=== PATIENT | male | born 1995 | race Caucasian/White ===

== ENCOUNTER 2017-07-26 15:03 | Inpatient (IN) | payer OTHER, MEDICAID ==
[~2017-07-26] VITALS: Ht 185.4 cm; Wt 89.4 kg
[2017-07-26 15:19] LABS: HEMATOCRIT 45.1 % (42.0-52.0); HEMOGLOBIN 16.3 g/dl (14.0-18.0); MEAN CELL VOLUME 88.6 fl (80.0-94.0); MEAN CORPUSCULAR HGB CONC 36.1 g/dl (33.0-37.0); MEAN PLATELET VOLUME 9.9 fl (9.6-12.3); PLATELET COUNT AUTOMATED 269 10*3/uL (130-400); RED BLOOD COUNT 5.09 10*6/uL (4.50-5.90); RED CELL DISTRI WIDTH 11.9 % (0-14.5); WHITE BLOOD COUNT 23.2 10*3/uL (4.8-10.8)
[2017-07-26 15:35] LABS: ALBUMIN 4.5 gm/dl (3.1-4.5); ALKALINE PHOSPHATASE 66 U/L (45-117); BUN 11 mg/dl (7-24); CHLORIDE 103 mmol/L (98-107); CREATININE 1.19 mg/dL (0.70-1.30); POTASSIUM 3.7 mmol/L (3.5-5.1); SGOT/AST 24 IU/L (3-35); SGPT/ALT 36 U/L (12-78); SODIUM 140 mmol/L (136-145); TOTAL PROTEIN 7.9 gm/dL (6.4-8.2)
[2017-07-26 15:36] LABS: TOTAL CELLS COUNTED 100 #CELLS
[2017-07-26 15:37] LABS: PLATELET SUFFICIENCY NORMAL (NORMAL)
[2017-07-26] MEDS ORDERED: SOTALOL HCL80 MG PO (15:40)
[2017-07-26 15:41] LABS: ACETAMINOPHEN (TYLENOL) < 2.0 ug/ml (10-30); ETHYL ALCOHOL < 3.0 mg/dl (<3)
[2017-07-26 15:44] LABS: THYROID STIM HORMONE (HS) 0.668 uIU/ml (0.358-4.75)
[2017-07-26 16:23] LABS: CKMB 1.4 ng/ml (0.5-3.6)
[2017-07-26 16:39] VITALS: BP 116/66
[2017-07-26 17:15] LABS: BILIRUBIN NEGATIVE (NEGATIVE); BLOOD 3+ (NEGATIVE); CLARITY SL CLOUDY (CLEAR); COLOR YELLOW (YELLOW); GLUCOSE NEGATIVE (NEGATIVE); KETONE 2+ (NEGATIVE); LEUKO ESTERASE NEGATIVE (NEGATIVE); NITRITE NEGATIVE (NEGATIVE); PH 5.5 (5.0-9.0); SPECIFIC GRAVITY 1.025 (1.005-1.030); UROBILINOGEN 0.2 E.U./dl (0.2-1.0)
[2017-07-26 17:25] LABS: URINE AMPHETAMINES < 1000 (1000ng/ml); URINE BARBITURATES < 200 (200ng/ml); URINE BENZODIAZEPINES < 200 (200ng/ml); URINE CANNABINOIDS (THC) < 50 (50ng/ml); URINE COCAINE < 300 (300ng/ml); URINE METHADONE < 300 (300ng/ml); URINE OPIATES < 300 (300ng/ml)
[2017-07-26 17:26] LABS: URINE PHENCYCLIDINE < 25 (25ng/ml)
[2017-07-26 17:28] LABS: BACTERIA TRACE; MUCOUS 1+; RBC 41-50 rbc/hpf (0-2)
[2017-07-26 17:42] LABS: WBC 0-2 wbc/hpf (0-5)
[2017-07-26 18:25] VITALS: BP 132/79; BP 142/79
[2017-07-26] MEDS ORDERED: OMEPRAZOLE40 MG PO (18:27)
[2017-07-26] MEDS ORDERED: KLONOPIN1 M1 PO (18:28)
[2017-07-26 20:00] VITALS: BP 142/80
[2017-07-27] VITALS: BP 115/57
[2017-07-27 04:42] LABS: BASO % 0.2 % (0.0-1.0); EOS # 0.2 10*3/uL (0.0-0.4); EOS % 1.9 % (1.0-4.0); HEMATOCRIT 42.3 % (42.0-52.0); HEMOGLOBIN 14.6 g/dl (14.0-18.0); LYMPH # 2.7 10*3/uL (1.3-4.4); LYMPH % 32.6 % (27.0-41.0); MEAN CELL VOLUME 90.6 fl (80.0-94.0); MEAN CORPUSCULAR HGB 31.3 pg (27.0-31.0); MEAN CORPUSCULAR HGB CONC 34.5 g/dl (33.0-37.0); MEAN PLATELET VOLUME 10.5 fl (9.6-12.3); MONO # 0.8 10*3/uL (0.1-1.0); NEUT # 4.6 10*3/uL (2.3-7.9); NEUT % 55.1 % (47.0-73.0); PLATELET COUNT AUTOMATED 229 10*3/uL (130-400); RED BLOOD COUNT 4.67 10*6/uL (4.50-5.90); RED CELL DISTRI WIDTH 12.3 % (0-14.5); WHITE BLOOD COUNT 8.3 10*3/uL (4.8-10.8)
[2017-07-27 04:58] VITALS: BP 124/67
[2017-07-27 04:58] LABS: ACT PARTIAL THROMBO TIME 25.2 SECONDS (20.8-31.5); ALBUMIN 3.7 gm/dl (3.1-4.5); ALKALINE PHOSPHATASE 53 U/L (45-117); BUN 9 mg/dl (7-24); CHLORIDE 104 mmol/L (98-107); CHOLESTEROL 144 mg/dL (<200); CREATININE 0.93 mg/dL (0.70-1.30); HDL CHOLESTEROL 28 mg/dl (40-60); INTERNATIONAL NORM RATIO 1.1 (2.0-3.5); LDL CHOLESTEROL 84 mg/dL (9-159); PHOSPHOROUS 4.1 mg/dL (2.5-4.9); SGOT/AST 22 IU/L (3-35); SGPT/ALT 28 U/L (12-78); SODIUM 139 mmol/L (136-145); TOTAL PROTEIN 6.6 gm/dL (6.4-8.2); TRIGLYCERIDES 160 mg/dl (<150); VLDL CHOLESTEROL 32 mg/dL (6-40)
[2017-07-27 07:02] LABS: VITAMIN D, 25-HYDROXY 28.2 ng/mL (30-100)
[2017-07-27 08:00] VITALS: BP 121/82
[2017-07-27 12:00] VITALS: BP 117/66
== END 2017-07-27 14:15 | disposition left against medical advice (07) | DRG 880 ==
LOC: ED 15:03 → EDHOLD 16:44 → ICCU 16:44
PROVIDERS: Family Medicine; Nurse Practitioner Family; ADMIT Internal Medicine
DX: F05 Delirium due to known physiological condition (principal); I42.8 Other cardiomyopathies; R65.10 Systemic inflammatory response syndrome (SIRS) of non-infectious origin without acute organ dysfunction; R17 Unspecified jaundice; K21.9 Gastro-esophageal reflux disease without esophagitis; R80.9 Proteinuria, unspecified; R82.4 Acetonuria; R31.9 Hematuria, unspecified; B95.61 Methicillin susceptible Staphylococcus aureus infection as the cause of diseases classified elsewhere; Z53.21 Procedure and treatment not carried out due to patient leaving prior to being seen by health care provider; F41.9 Anxiety disorder, unspecified; Z95.0 Presence of cardiac pacemaker; Z87.891 Personal history of nicotine dependence; Z82.49 Family history of ischemic heart disease and other diseases of the circulatory system; Z81.8 Family history of other mental and behavioral disorders; Z84.89 Family history of other specified conditions; Z79.899 Other long term (current) drug therapy